=== PATIENT | female | born 1995 | race Caucasian/White ===

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

== ENCOUNTER 2017-08-20 00:32 | Emergency (ER) | payer SELFPAY ==
[2017-08-20 01:53] LABS: Basophils % (Auto) 0.4 % (0.0-1.8); Eosinophils % (Auto) 0.8 % (0.0-4.3); Hemoglobin 12.6 gm/dl (10.1-14.3); Mean Corpuscular HGB Conc 33 % (30-34); Mean Corpuscular Hemoglobin 26 pg (28-32); Mean Corpuscular Volume 80 fl (79-97); Platelet Count 462 K/mm3 (140-440); Red Blood Count 4.77 M/mm3 (3.65-5.03); Red Cell Distribution Width 14.6 % (13.2-15.2); White Blood Count 14.1 K/mm3 (4.5-11.0)
[2017-08-20 02:11] LABS: Alanine Aminotransferase 16 units/L (7-56); Albumin 4.5 g/dL (3.9-5); Albumin/Globulin Ratio 1.2 %; Alkaline Phosphatase 65 units/L (35-129); Anion Gap 17 mmol/L; BUN/Creatinine Ratio 24; Bilirubin,Total < 0.20 mg/dL (0.1-1.2); Blood Urea Nitrogen 12 mg/dL (7-17); Calcium 9.3 mg/dL (8.4-10.2); Carbon Dioxide 28 mmol/L (22-30); Chloride 98.7 mmol/L (98-107); Glucose 87 mg/dL (65-100); Lipase 36 units/L (13-60); Potassium 3.9 mmol/L (3.6-5.0); Sodium 140 mmol/L (137-145); Total Protein 8.2 g/dL (6.3-8.2)
[2017-08-20 02:51] LABS: Mucus,Urine FEW /HPF
[2017-08-20 03:01] LABS: Bilirubin,Urine Negative (Negative); Ketones,Urine Negative (Negative); Protein,Urine <15 mg/dL mg/dL (Negative); Urobilinogen,Urine < 2.0 mg/dL (<2.0)
[2017-08-20 03:02] LABS: Leukocyte Esterase,Urine Moderate (Negative); Nitrite,Urine Negative (Negative)
[2017-08-20] MEDS ORDERED: TORADOL IV ONE (10:48)
[2017-08-20] MEDS ORDERED: TYLENOL PO ONE (10:48)
[2017-08-20] MEDS ORDERED: NACL 0.9% 250ML 250 ML IV ONE (10:48)
[2017-08-20] MEDS ORDERED: ROCEPHIN/NS 1 GM/50 ML 1 GM/50 ML BAG IV ONE (10:49)
--- NOTE | 2017-08-20 10:49 | Emergency Department Report ---
ED Abdominal Pain HPI - General Chief Complaint: Abdominal Pain Stated Complaint: ABD PAIN Time Seen by Provider: 08/20/17 10:31 Source: patient Mode of arrival: Ambulatory Limitations: No Limitations - History of Present Illness Initial Comments: This is a 22-year-old female. She endorses a past medical history of obesity. No surgical history recently. Has past history of hypertension that a sensation which has since resolved. Presents to the ear with suprapubic and bilateral lower quadrant abdominal pain which started last night. This is associated with dysuria. No headache, neck pain, chest pain, shortness of breath, vomiting, fevers. No vaginal discharge. Symptoms are constant. They worse with palpation and range of motion. It decreased with rest. It does not radiate anywhere. MD Complaint: abdominal pain -: Gradual Location: periumbilical, LLQ, RLQ, suprapubic Severity scale (0 -10): 0 Quality: cramping Consistency: constant Improves With: rest Worsens With: movement Associated Symptoms: dysuria - Related Data Home Medications Medication Instructions Recorded Confirmed Last Taken Labetalol [Normodyne TAB] 100 mg PO BID 11/09/16 11/09/16 11/09/16 100 mg Vit-Fe Fumar-FA [ 1 tab PO QDAY 11/09/16 11/09/16 Unknown Vitamin] Previous Rx's Medication Instructions Recorded Last Taken Type Labetalol [Normodyne TAB] 100 mg PO BID #60 tablet 11/11/16 Unknown Rx Ibuprofen [Motrin] 600 mg PO Q8H PRN #30 tablet 08/20/17 Unknown Rx Nitrofurantoin [place]/M-Cryst 100 mg PO Q12HR #14 capsule 08/20/17 Unknown Rx [Macrobid CAP] Ondansetron [Zofran Odt] 4 mg PO Q8HR PRN #20 tab.rapdis 08/20/17 Unknown Rx Phenazopyridine [Pyridium] 100 mg PO TID PRN #6 tab 08/20/17 Unknown Rx Allergies Allergy/AdvReac Type Severity Reaction Status Date / Time No Known Allergies Allergy Unverified 05/09/16 22:58 ED Review of Systems ROS: Stated complaint: ABD PAIN Other details as noted in HPI Constitutional: denies: fever Eyes: denies: eye discharge ENT: denies: epistaxis Respiratory: denies: cough Cardiovascular: denies: chest pain Gastrointestinal: abdominal pain Genitourinary: dysuria Musculoskeletal: denies: back pain Skin: denies: lesions Neurological: denies: weakness ED Past Medical Hx - Past Medical History Previous Medical History?: No Hx Hypertension: Yes (Gestational) Hx Congestive Heart Failure: No Hx Diabetes: No Hx Deep Vein Thrombosis: No Hx Renal Disease: No Hx Sickle Cell Disease: No Hx Seizures: No Hx Asthma: No Hx COPD: No Hx HIV: No - Surgical History Past Surgical History?: No - Social History Smoking Status: Never Smoker Substance Use Type: None - Medications Home Medications: Home Medications Medication Instructions Recorded Confirmed Last Taken Type Labetalol [Normodyne TAB] 100 mg PO BID 11/09/16 11/09/16 11/09/16 History 100 mg Vit-Fe Fumar-FA [ 1 tab PO QDAY 11/09/16 11/09/16 Unknown History Vitamin] Labetalol [Normodyne TAB] 100 mg PO BID #60 tablet 11/11/16 Unknown Rx Ibuprofen [Motrin] 600 mg PO Q8H PRN #30 tablet 08/20/17 Unknown Rx Nitrofurantoin [place]/M-Cryst 100 mg PO Q12HR #14 capsule 08/20/17 Unknown Rx [Macrobid CAP] Ondansetron [Zofran Odt] 4 mg PO Q8HR PRN #20 tab.rapdis 08/20/17 Unknown Rx Phenazopyridine [Pyridium] 100 mg PO TID PRN #6 tab 08/20/17 Unknown Rx ED Physical Exam - General Limitations: No Limitations General appearance: alert, in no apparent distress - Head Head exam: Present: atraumatic, normocephalic - Eye Eye exam: Present: normal appearance, EOMI. Absent: nystagmus - ENT ENT exam: Present: normal exam, normal orophraynx, mucous membranes moist, normal external ear exam - Neck Neck exam: Present: normal inspection, full ROM. Absent: tenderness, meningismus - Respiratory Respiratory exam: Present: normal lung sounds bilaterally. Absent: respiratory distress, chest wall tenderness - Cardiovascular Cardiovascular Exam: Present: regular rate, normal rhythm, normal heart sounds. Absent: systolic murmur, diastolic murmur, rubs, gallop - GI/Abdominal GI/Abdominal exam: Present: soft, tenderness, normal bowel sounds, other (there is suprapubic tenderness. There is right lower quadrant and left lower quadrant tenderness to deep palpation.). Absent: distended, guarding, rebound, rigid, pulsatile mass - External exam: Present: normal external exam Speculum exam: Present: normal speculum exam Bi-manual exam: Present: normal bi-manual exam (escorted by nurse Lynn Kohli), other (intrauterine device is noted on gynecologic examination. During gynecologic examination, escorted by nursing Fatoumata). Absent: cervical motion tendernes, adnexal tenderness, adnexal mass, uterine enlargement, uterine tenderness - Extremities Exam Extremities exam: Present: normal inspection, full ROM, normal capillary refill. Absent: pedal edema, joint swelling, calf tenderness - Back Exam Back exam: Present: normal inspection, full ROM. Absent: tenderness, CVA tenderness (R), paraspinal tenderness, vertebral tenderness - Neurological Exam Neurological exam: Present: alert, oriented X3, normal gait, other (Extraocular movements intact. Tongue midline. No facial droop. Facial sensation intact to light touch in the V1, V2, V3 distribution bilaterally. 5 and 5 strength in 4 extremities.. Sensation is intact to light touch in 4 extremities.). Absent : motor sensory deficit - Psychiatric Psychiatric exam: Present: normal affect, normal mood - Skin Skin exam: Present: warm, dry, intact, normal color. Absent: rash ED Course Vital Signs 08/20/17 08/20/17 08/20/17 01:28 06:24 09:26 Temperature 98.9 F 98.2 F 98 F Pulse Rate 90 82 75 Respiratory 18 14 15 Rate Blood Pressure 102/78 138/87 Blood Pressure 136/89 [Left] O2 Sat by Pulse 97 99 99 Oximetry 08/20/17 12:42 Temperature 97.9 F Pulse Rate 72 Respiratory 18 Rate Blood Pressure Blood Pressure 138/89 [Left] O2 Sat by Pulse 99 Oximetry ED Medical Decision Making - Lab Data Result diagrams: 08/20/17 01:22 08/20/17 01:22 Vital Signs 08/20/17 08/20/17 08/20/17 01:28 06:24 09:26 Temperature 98.9 F 98.2 F 98 F Pulse Rate 90 82 75 Respiratory 18 14 15 Rate Blood Pressure 102/78 138/87 Blood Pressure 136/89 [Left] O2 Sat by Pulse 97 99 99 Oximetry 08/20/17 12:42 Temperature 97.9 F Pulse Rate 72 Respiratory 18 Rate Blood Pressure Blood Pressure 138/89 [Left] O2 Sat by Pulse 99 Oximetry Lab Results 08/20/17 08/20/17 08/20/17 Range/Units 01:22 01:22 01:40 WBC 14.1 H (4.5-11.0) K/mm3 RBC 4.77 (3.65-5.03) M/mm3 Hgb 12.6 (10.1-14.3) gm/dl Hct 38.0 (30.3-42.9) % MCV 80 (79-97) fl MCH 26 L (28-32) pg MCHC 33 (30-34) % RDW 14.6 (13.2-15.2) % Plt Count 462 H (140-440) K/mm3 Lymph % (Auto) 17.5 (13.4-35.0) % [place] % (Auto) 3.8 (0.0-7.3) % Eos % (Auto) 0.8 (0.0-4.3) % Baso % (Auto) 0.4 (0.0-1.8) % Lymph # 2.5 (1.2-5.4) K/mm3 [place] # 0.5 (0.0-0.8) K/mm3 Eos # 0.1 (0.0-0.4) K/mm3 Baso # 0.1 (0.0-0.1) K/mm3 Seg Neutrophils % 77.5 H (40.0-70.0) % Seg Neutrophils # 10.9 H (1.8-7.7) K/mm3 Sodium 140 (137-145) mmol/L Potassium 3.9 (3.6-5.0) mmol/L Chloride 98.7 (98-107) mmol/L Carbon Dioxide 28 (22-30) mmol/L Anion Gap 17 mmol/L BUN 12 (7-17) mg/dL Creatinine 0.5 L (0.7-1.2) mg/dL Estimated GFR > 60 ml/min BUN/Creatinine Ratio 24 % Glucose 87 (65-100) mg/dL Calcium 9.3 (8.4-10.2) mg/dL Total Bilirubin < 0.20 (0.1-1.2) mg/dL AST 17 (5-40) units/L ALT 16 (7-56) units/L Alkaline Phosphatase 65 (35-129) units/L Total Protein 8.2 (6.3-8.2) g/dL Albumin 4.5 (3.9-5) g/dL Albumin/Globulin Ratio 1.2 % Lipase 36 (13-60) units/L Urine Color Yellow (Yellow) Urine Turbidity Clear (Clear) Urine pH 7.0 (5.0-7.0) Ur Specific [place] 1.014 (1.003-1.030) Urine Protein <15 mg/dl (Negative) mg/dL Urine Glucose (UA) Negative (Negative) mg/dL Urine Ketones Negative (Negative) mg/dL Urine Nitrite Negative (Negative) Ur Reducing Substances Not Reportable Urine Bilirubin Negative (Negative) Urine Ictotest Not Reportable Urine Urobilinogen < 2.0 (<2.0) mg/dL Ur Leukocyte Esterase Moderate (Negative) Urine WBC (Auto) 55.0 H (0.0-6.0) /HPF Urine RBC (Auto) 4.0 (0.0-6.0) /HPF U Epithel Cells (Auto) 1.0 (0-13.0) /HPF Urine Mucus Few /HPF Urine HCG, Qual Negative (Negative) - Radiology Data Radiology results: report reviewed, image reviewed CT scan of the abdomen and pelvis demonstrates no evidence of appendicitis. No evidence of tubo-ovarian abscess. No evidence of renal calculus. - Medical Decision Making Differential diagnosis, including but not limited to: Urinary tract infection, pelvic inflammatory disease, appendicitis Assessment and plan: 22-year-old female with irritative urinary symptoms, suprapubic and bilateral lower quadrant pain, CT scan does not demonstrate any surgical disease, patient feels improved with the pain medication, she is given IV fluids and appropriate antibiotics, the patient will be discharged at this time, return precautions are reviewed. Critical care attestation.: If time is entered above; I have spent that time in minutes in the direct care of this critically ill patient, excluding procedure time. ED Disposition Clinical Impression: UTI (urinary tract infection) Disposition: DC-01 TO HOME OR SELFCARE Is pt being admited?: No Does the pt Need Aspirin: No Condition: Stable Instructions: Urinary Tract Infection in Women (ED) Additional Instructions: Cultures were sent today. Results will be available in the next 3-5 days. Have a primary care doctor or mma fighter contact the medical records department to obtain culture results. Follow up with the primary care doctor or mma fighter within the next 2 weeks. Avoid consumption of alcohol. Return to the ER right away with new pain, worsening pain, migration of pain, fevers, chills, flank pain, intractable nausea or vomiting, confusion, inability to tolerate liquid feeds. Symptoms most likely coming from urinary tract infection. Prescriptions: Ibuprofen [Motrin] 600 mg PO Q8H PRN #30 tablet PRN Reason: Pain Nitrofurantoin [place]/M-Cryst [Macrobid CAP] 100 mg PO Q12HR #14 capsule Ondansetron [Zofran Odt] 4 mg PO Q8HR PRN #20 tab.rapdis PRN Reason: Nausea Phenazopyridine [Pyridium] 100 mg PO TID PRN #6 tab PRN Reason: Pain Referrals: PRIMARY CAREMD [Primary Care Provider] - 3-5 Days [facility] [Provider Group] - 3-5 Days [facility] [Provider Group] - 3-5 Days [facility] [Provider Group] - 3-5 Days
--- NOTE | 2017-08-20 12:42 | Cat Scan Report ---
CT ABDOMEN AND PELVIS WITH CONTRAST: 08/20/17 00:32:00 CLINICAL: Abdominal pain and dysuria. COMPARISON: None. TECHNIQUE: Volumetric acquisition and 1.25 millimeter scan reconstructions after the uneventful intravenous injection of 100 cc Omnipaque 300. Consent was obtained prior to the administration of contrast. Oral contrast was not given. FINDINGS: Abdomen: Clear lung bases.Normal kidneys with nondilated renal collections systems and ureters. Normal adrenal glands. Normal stomach, duodenum, pancreas and spleen. Normal aorta and inferior vena cava. The small bowel is normal.Normal ascending, transverse and descending colon. The appendix is normal. No mass, lymphadenopathy or ascites.No pneumoperitoneum. Pelvis: A normal retroverted uterus with an IUD in normal position. The urinary bladder is normal. Bilateral ovarian masses with predominant fat density. A mixed density oval smooth right ovarian mass measures 5.0 x 4.0 x 4.4 cm and contains a 9 mm tooth. A similar mixed density but predominantly fat density mass on the left side and slightly posterior to the uterus measures 3.1 x 3.0 x 2.6 cm. It contains an 8mm teeth. Normal rectum and sigmoid colon. No free pelvic fluid. Bone windows demonstrate no bone lesion. IMPRESSION:1. Bilateral benign ovarian dermoid cysts. 2. No urinary calculus. 3. No appendicitis.
[2017-08-20 12:44] VITALS: BP 138/89
== END 2017-08-20 13:02 | disposition home or self-care (01) ==
LOC: ED 00:32
DX: N39.0 Urinary tract infection, site not specified (principal)
CPT/HCPCS: 36415; 74177; 80053; 81001; 81025; 83690; 85025; 87210; 87591; 96365; 96375; 99285; J0696; J1885; J7050; Q9967

== ENCOUNTER 2020-11-01 20:49 | Emergency (ER) | payer MEDICAID, SELFPAY ==
[2020-11-02] MEDS ORDERED: ONDANSETRON 4 MG ODT TAB PO ONE (00:42)
--- NOTE | 2020-11-02 00:46 | Event Note ---
ED Screening Note Date of service: 11/02/20 Time: 00:44 ED Screening Note: This initial assessment/diagnostic orders/clinical plan/treatment(s) is/are subject to change based on patients health status, clinical progression and re- assessment by fellow clinical providers in the ED. Further treatment and workup at subsequent clinical providers discretion. Patient/guardian urged not to elope from the ED as their condition may be serious if not clinically assessed and managed. Initial orders include: This is a 25-year-old obese female. She is complaining abdominal pain in the epigastric region started 2 days ago. The pain does not radiate. Today patient states that after eating breakfast that consisted of eggs and toast 30 minutes later she started vomiting. She has vomited too many times to count. Currently complaining of just feeling weak. She denies states she has some the Mirena in unknown her last menstrual period. She is in no acute distress respiration easy and unlabored
[2020-11-02 01:04] LABS: Hematocrit 38.9 % (30.3-42.9); Hemoglobin 13.8 gm/dl (10.1-14.3); Mean Corpuscular HGB Conc 36 % (30-34); Mean Corpuscular Volume 86 fl (79-97); Platelet Count 435 K/mm3 (140-440); Red Blood Count 4.51 M/mm3 (3.65-5.03); Red Cell Distribution Width 12.8 % (13.2-15.2)
[2020-11-02 01:12] LABS: Bacteria,Urine 4+ /HPF (Negative); Bilirubin,Urine NEG (Negative); Blood,Urine NEG (Negative); Color,Urine Amber (Yellow); Mucus,Urine 3+ /HPF
[2020-11-02 01:24] LABS: Alanine Aminotransferase 493 units/L (7-56); Albumin 4.7 g/dL (3.9-5); Blood Urea Nitrogen 10 mg/dL (7-17); Calcium 9.2 mg/dL (8.4-10.2); Hemolysis Index 23
[2020-11-02 01:29] LABS: BUN/Creatinine Ratio 20
--- NOTE | 2020-11-02 03:00 | Ultrasound Report ---
ULTRASOUND ABDOMEN, LIMITED (RIGHT UPPER QUADRANT) INDICATION: ABDOMINAL PAIN. COMPARISON: CT scan dated 08/20/2017 FINDINGS: Pancreas: Visualized portion shows no significant abnormality. Liver: There is mild increased echogenicity in the liver characteristic of fatty infiltration. Gallbladder: Cholelithiasis Bile ducts: Normal. Common Bile Duct measures 2 mm. Free fluid: None. Additional Findings: None. IMPRESSION: 1. There is cholelithiasis. There is fatty infiltration of the liver. Signer Name: Sanjeev Au MD Signed: 11/02/2020 2:55 AM Workstation Name: [id number]
--- NOTE | 2020-11-02 06:35 | Emergency Department Report ---
ED Abdominal Pain HPI - General Chief Complaint: Abdominal Pain Stated Complaint: ABD PAIN/EMESIS Time Seen by Provider: 11/02/20 06:21 Source: patient Mode of arrival: Ambulatory Limitations: No Limitations - History of Present Illness Initial Comments: 25-year-old obese female presents to the hospital complaining of intermittent epigastric pain x3 days. Pain is described as moderate to severe, sharp, worse with palpation, no alleviating factors reported. Has associated intermittent nausea vomiting. Denies fever, hematemesis, or diarrhea. No urinary symptoms reported. Since ED arrival pain has improved greatly without intervention - Related Data Home Medications Medication Instructions Recorded Confirmed Last Taken Vit-Fe Fumar-FA [ 1 tab PO QDAY 11/09/16 11/09/16 Unknown Vitamin] labetaloL [Normodyne TAB] 100 mg PO BID 11/09/16 11/09/16 11/09/16 100 mg Previous Rx's Medication Instructions Recorded Last Taken Type labetaloL [Labetalol 100mg TAB] 100 mg PO BID #60 tablet 11/11/16 Unknown Rx Ibuprofen [Motrin] 600 mg PO Q8H PRN #30 tablet 08/20/17 Unknown Rx Nitrofurantoin [place]/M-Cryst 100 mg PO Q12HR #14 capsule 08/20/17 Unknown Rx [Macrobid CAP] Ondansetron [Zofran Odt] 4 mg PO Q8HR PRN #20 tab.rapdis 08/20/17 Unknown Rx Phenazopyridine [Pyridium] 100 mg PO TID PRN #6 tab 08/20/17 Unknown Rx Famotidine [Pepcid] 20 mg PO BID #20 tablet 11/02/20 Unknown Rx Nitrofurantoin [place]/M-Cryst 100 mg PO Q12HR #10 capsule 11/02/20 Unknown Rx [Macrobid CAP] Ondansetron [Zofran Odt] 4 mg PO Q8HR PRN #20 tab.rapdis 11/02/20 Unknown Rx traMADoL [Ultram 50 MG tab] 50 mg PO Q6HR PRN #15 tablet 11/02/20 Unknown Rx Allergies Allergy/AdvReac Type Severity Reaction Status Date / Time No Known Allergies Allergy Unverified 05/09/16 22:58 ED Review of Systems ROS: Stated complaint: ABD PAIN/EMESIS Other details as noted in HPI Comment: All other systems reviewed and negative ED Past Medical Hx - Past Medical History Previous Medical History?: Yes Hx Hypertension: Yes (Gestational) Hx Congestive Heart Failure: No Hx Diabetes: No Hx Deep Vein Thrombosis: No Hx Renal Disease: No Hx Sickle Cell Disease: No Hx Seizures: No Hx Asthma: No Hx COPD: No Hx HIV: No - Surgical History Past Surgical History?: No - Social History Smoking Status: Never Smoker Substance Use Type: None - Medications Home Medications: Home Medications Medication Instructions Recorded Confirmed Last Taken Type Vit-Fe Fumar-FA [ 1 tab PO QDAY 11/09/16 11/09/16 Unknown History Vitamin] labetaloL [Normodyne TAB] 100 mg PO BID 11/09/16 11/09/16 11/09/16 History 100 mg labetaloL [Labetalol 100mg TAB] 100 mg PO BID #60 tablet 11/11/16 Unknown Rx Ibuprofen [Motrin] 600 mg PO Q8H PRN #30 tablet 08/20/17 Unknown Rx Nitrofurantoin [place]/M-Cryst 100 mg PO Q12HR #14 capsule 08/20/17 Unknown Rx [Macrobid CAP] Ondansetron [Zofran Odt] 4 mg PO Q8HR PRN #20 tab.rapdis 08/20/17 Unknown Rx Phenazopyridine [Pyridium] 100 mg PO TID PRN #6 tab 08/20/17 Unknown Rx Famotidine [Pepcid] 20 mg PO BID #20 tablet 11/02/20 Unknown Rx Nitrofurantoin [place]/M-Cryst 100 mg PO Q12HR #10 capsule 11/02/20 Unknown Rx [Macrobid CAP] Ondansetron [Zofran Odt] 4 mg PO Q8HR PRN #20 tab.rapdis 11/02/20 Unknown Rx traMADoL [Ultram 50 MG tab] 50 mg PO Q6HR PRN #15 tablet 11/02/20 Unknown Rx ED Physical Exam - General Limitations: No Limitations - Other Other exam information: General: No acute distress Head: Atraumatic Eyes: normal appearance ENT: Moist mucous membranes Neck: Normal appearance, no midline tenderness Chest: Clear to auscultation bilaterally CV: Regular rate and rhythm Abdomen: Soft, normal bowel sounds, epigastric and right upper quadrant tenderness, nondistended, no rebound or guarding Back: Normal inspection Extremity: Normal inspection, full range of motion Neuro: Alert O x 3, no facial asymmetry, speech clear, no gross motor sensory deficit Psych: Appropriate behavior Skin: No rash ED Course Vital Signs 11/01/20 23:50 Temperature 98.3 F Pulse Rate 98 H Respiratory 20 Rate Blood Pressure 146/95 O2 Sat by Pulse 98 Oximetry ED Medical Decision Making - Lab Data Result diagrams: 11/02/20 00:45 11/02/20 00:45 Lab Results 11/02/20 11/02/20 11/02/20 Range/Units 00:45 00:45 00:45 WBC 12.0 H (4.5-11.0) K/mm3 RBC 4.51 (3.65-5.03) M/mm3 Hgb 13.8 (10.1-14.3) gm/dl Hct 38.9 (30.3-42.9) % MCV 86 (79-97) fl MCH 31 (28-32) pg MCHC 36 H (30-34) % RDW 12.8 L (13.2-15.2) % Plt Count 435 (140-440) K/mm3 Sodium 138 (137-145) mmol/L Potassium 4.2 (3.6-5.0) mmol/L Chloride 98.4 (98-107) mmol/L Carbon Dioxide 27 (22-30) mmol/L Anion Gap 17 mmol/L BUN 10 (7-17) mg/dL Creatinine 0.5 L (0.6-1.2) mg/dL Estimated GFR > 60 ml/min BUN/Creatinine Ratio 20 % Glucose 111 H (65-100) mg/dL Calcium 9.2 (8.4-10.2) mg/dL Total Bilirubin 0.40 (0.1-1.2) mg/dL AST 419 H (5-40) units/L ALT 493 H (7-56) units/L Alkaline Phosphatase 153 H (35-129) units/L Total Protein 7.7 (6.3-8.2) g/dL Albumin 4.7 (3.9-5) g/dL Albumin/Globulin Ratio 1.6 % Lipase 21 (13-60) units/L HCG, Qual (Negative) Urine Color (Yellow) Urine Turbidity (Clear) Urine pH (5.0-7.0) Ur Specific [place] (1.003-1.030) Urine Protein (Negative) mg/dL Urine Glucose (UA) (Negative) mg/dL Urine Ketones (Negative) mg/dL Urine Blood (Negative) Urine Nitrite (Negative) Urine Bilirubin (Negative) Urine Urobilinogen (<2.0) mg/dL Ur Leukocyte Esterase (Negative) Urine WBC (Auto) (0.0-6.0) /HPF Urine RBC (Auto) (0.0-6.0) /HPF U Epithel Cells (Auto) (0-13.0) /HPF Urine Bacteria (Auto) (Negative) /HPF Urine Mucus /HPF 11/02/20 11/02/20 Range/Units 00:45 Unknown WBC (4.5-11.0) K/mm3 RBC (3.65-5.03) M/mm3 Hgb (10.1-14.3) gm/dl Hct (30.3-42.9) % MCV (79-97) fl MCH (28-32) pg MCHC (30-34) % RDW (13.2-15.2) % Plt Count (140-440) K/mm3 Sodium (137-145) mmol/L Potassium (3.6-5.0) mmol/L Chloride (98-107) mmol/L Carbon Dioxide (22-30) mmol/L Anion Gap mmol/L BUN (7-17) mg/dL Creatinine (0.6-1.2) mg/dL Estimated GFR ml/min BUN/Creatinine Ratio % Glucose (65-100) mg/dL Calcium (8.4-10.2) mg/dL Total Bilirubin (0.1-1.2) mg/dL AST (5-40) units/L ALT (7-56) units/L Alkaline Phosphatase (35-129) units/L Total Protein (6.3-8.2) g/dL Albumin (3.9-5) g/dL Albumin/Globulin Ratio % Lipase (13-60) units/L HCG, Qual Negative (Negative) Urine Color [place] (Yellow) Urine Turbidity Cloudy (Clear) Urine pH 6.0 (5.0-7.0) Ur Specific [place] 1.019 (1.003-1.030) Urine Protein 30 mg/dl (Negative) mg/dL Urine Glucose (UA) Neg (Negative) mg/dL Urine Ketones Tr (Negative) mg/dL Urine Blood Neg (Negative) Urine Nitrite Neg (Negative) Urine Bilirubin Neg (Negative) Urine Urobilinogen 2.0 (<2.0) mg/dL Ur Leukocyte Esterase Mod (Negative) Urine WBC (Auto) 21.0 H (0.0-6.0) /HPF Urine RBC (Auto) 3.0 (0.0-6.0) /HPF U Epithel Cells (Auto) 10.0 (0-13.0) /HPF Urine Bacteria (Auto) 4+ (Negative) /HPF Urine Mucus 3+ /HPF - Radiology Data Radiology results: report reviewed ULTRASOUND ABDOMEN, LIMITED (RIGHT UPPER QUADRANT) INDICATION: ABDOMINAL PAIN. COMPARISON: CT scan dated 08/20/2017 FINDINGS: Pancreas: Visualized portion shows no significant abnormality. Liver: There is mild increased echogenicity in the liver characteristic of fatty infiltration. Gallbladder: Cholelithiasis Bile ducts: Normal. Common Bile Duct measures 2 mm. Free fluid: None. Additional Findings: None. IMPRESSION: 1. There is cholelithiasis. There is fatty infiltration of the liver. - Medical Decision Making 25-year female presents to the hospital elevated LFTs and intermittent epiga stric and right upper quadrant pain with nausea vomiting. Ultrasound confirms fatty liver infiltration and cholelithiasis. No clinical or laboratory or imaging findings of cholecystitis. Patient be treated symptomatically with outpatient follow-up with PMD and surgery encourage. Incidental findings of possible UTI which should be treated for antibiotics Critical Care Time: No Critical care attestation.: If time is entered above; I have spent that time in minutes in the direct care of this critically ill patient, excluding procedure time. ED Disposition Clinical Impression: Biliary colic, UTI (urinary tract infection), Fatty liver, Elevated liver enzymes Disposition: DC- TO HOME OR SELFCARE Is pt being admited?: No Condition: Stable Instructions: Abdominal Pain (ED) Additional Instructions: Take the medication as prescribed. Follow-up with your doctor or doctor/clinic provided. Return if symptoms worsen as indicated by your discharge instructions. Prescriptions: Nitrofurantoin [place]/M-Cryst [Macrobid CAP] 100 mg PO Q12HR #10 capsule Famotidine [Pepcid] 20 mg PO BID #20 tablet traMADoL [Ultram 50 MG tab] 50 mg PO Q6HR PRN #15 tablet PRN Reason: Pain Ondansetron [Zofran Odt] 4 mg PO Q8HR PRN #20 tab.rapdis PRN Reason: Nausea And Vomiting Referrals: SITKA KIZZY RAE MD [Primary Care Provider] - 3-5 Days NILE UREÑA MD [Staff Physician] - 3-5 Days (Surgeon) MARIANA TRUJILLO MD [Staff Physician] - 3-5 Days Time of Disposition: 06:33
[2020-11-02 07:28] VITALS: BP 139/90
== END 2020-11-02 07:27 | disposition home or self-care (01) ==
LOC: ED 20:49
DX: K80.50 Calculus of bile duct without cholangitis or cholecystitis without obstruction (principal); N39.0 Urinary tract infection, site not specified; K76.0 Fatty (change of) liver, not elsewhere classified; R79.89 Other specified abnormal findings of blood chemistry; I10 Essential (primary) hypertension; Z79.1 Long term (current) use of non-steroidal anti-inflammatories (NSAID); Z79.899 Other long term (current) drug therapy
CPT/HCPCS: 36415; 76705; 80053; 81001; 83690; 84703; 85027; 87086